=== PATIENT | male | born 1965 | race Caucasian/White ===

== ENCOUNTER 2021-10-26 04:10 | Inpatient (IN) ==
[2021-10-26] MEDS ORDERED: ONDANSETRON INJ 2 MG/ML 2 ML VIAL IV STA (04:27)
[2021-10-26] MEDS ORDERED: SODIUM CHLORIDE 0.9% 1000ML 1,000 ML IV SCH (04:30)
[2021-10-26 06:05] LABS: Albumin Globulin Ratio 1.3 (0.9-2); Albumin Level 3.8 gm/dl (3.4-5.0); Bilirubin,Total 0.7 mg/dl (0.2-1.0); Calcium 8.3 mg/dl (8.5-10.1); Creatinine Clr Calc Pharmacy 37.5 ml/min; Est GFR (African American) 39.7 ml/min; Est GFR (Non-African American) 34.3 ml/min; Potassium 4.1 mmol/L (3.5-5.1); Total Protein 6.8 gm/dl (6.0-8.3)
[2021-10-26 06:23] LABS: Basophils # (auto) 0.05 K/uL (0-0.2); Basophils % (auto) 0.8 %; Echinocytes 2+; Hemoglobin 15.6 g/dl (14.0-18.0); Immature Granulocytes # (auto) 0.05 K/uL (0.00-0.02); Immature Granulocytes % (auto) 0.8 %; Lymphocytes # (auto) 1.33 K/uL (1.2-3.4); Lymphocytes % (auto) 20.6 %; Mean Corpuscular Hemoglobin 29.2 pg (25.0-34.0); Mean Corpuscular Hgb Conc 33.9 g/dL (32.0-36.0); Mean Corpuscular Volume 86.1 fL (80.0-100.0); Mean Platelet Volume 9.9 fL (9.4-12.4); Monocytes # (auto) 0.57 K/uL (0.24-0.82); Monocytes % (auto) 8.8 %; Neutrophils # (auto) 4.46 K/uL (1.4-6.5); Platelet Count 295 K/uL (130-400); RDW Coefficient of Variation 13.6 % (11.5-14.5); RDW Standard Deviation 42.9 fL (36.4-46.3); Red Blood Count 5.34 M/uL (4.63-6.08); White Blood Count 6.46 K/ul (4.8-10.8)
[2021-10-26] MEDS ORDERED: SODIUM CHLORIDE 0.9% 1000ML 1,000 ML IV ONE (07:08)
[2021-10-26 07:33] LABS: Appearance Urine Cloudy (Clear); Bilirubin Urine Negative (Negative); Blood Urine Trace (Negative); Color Urine Dark Yellow; Glucose Urine UA Negative (Negative); Ketones Urine Negative (Negative); Leukocyte Esterase Urine Negative (Negative); Nitrite Urine Negative (Negative); Protein Urine 1+ (Negative); Specific Gravity Urine 1.021 (1.000-1.030); Urobilinogen Urine Negative (Negative)
--- NOTE | 2021-10-26 07:52 | Emergency Department Note ---
History of Present Illness General Chief complaint: Flu Like Symptoms Stated complaint: CHILLS, FEVER, DIARRHEA Time Seen by Provider: 10/26/21 04:17 History of Present Illness This 56-year-old male patient presents to the emergency department today for evaluation of "I am sick". Patient notes he has had diarrhea, nausea, and vomiting for 2 days. He notes his stool has been liquid. He states even certain movements make him move his bowels. He states he took Tylenol and Pepto-Bismol without relief of his symptoms. He does report subjective fevers. He recently traveled here from [facility] to help a friend who is having surgery. He denies any cough, congestion, runny nose, sore throat. He does n ote he has had COVID-19 and Monkey Pox vaccines. He denies any specific abdominal pain. He states his generalized discomfort is a 5/10. Past Med/Surg History Medical History No pertinent past medical history Social History Smoking Status: Current every day smoker Preferred Language: Mongolian Feels Safe at Home: Yes Review of Systems A total of 10 systems reviewed and were otherwise negative Physical Exam Vital Signs Vital Signs - 24 hr 10/26/21 04:15 10/26/21 05:49 10/26/21 07:00 Temperature 37.5 C Temperature Source Oral Pulse Rate 140 H Pulse Rate [Finger] 115 H 80 Respiratory Rate 20 18 18 Respiratory Effort / Characteristics Non-Labored Spontaneous Respiratory Depth Normal Normal Respiratory Pattern Regular Blood Pressure 140/75 Blood Pressure [Left Arm] 102/60 109/65 Blood Pressure Mean 96 Blood Pressure Mean [Left Arm] 74 79 Blood Pressure Position [Left Arm] Lying Pulse Oximetry 94 96 95 Oxygen Delivery Method Room Air Room Air Room Air Sepsis Recent Fever Within 48 Hours Yes Sepsis New/Unexplained Change in Mental Status N/A Sepsis Action Taken by Nursing No Action Required VITALS: Vitals are noted on the nurse's note and reviewed by myself. Patient is tachycardic on initial examination. GENERAL: This is a 56-year-old white male, in no acute distress, nondiaphoretic, well-developed well-nourished. SKIN: The skin was without rashes, erythema, edema, or bruising. There is no tenting of the skin. Capillary refill less than 2 seconds. HEAD: Normocephalic atraumatic. EYES: Conjunctivae without injection, sclerae without icterus. MOUTH: Mucous membranes moist. Tonsils are not enlarged. Pharynx without erythema or exudate. Uvula midline. Airway patent. Tongue does not deviate. NECK: Supple without nuchal rigidity. No lymphadenopathy. No JVD. HEART: Regular rate and rhythm without murmurs gallops or rubs. LUNGS: Clear to auscultation bilaterally without wheezes, rales or rhonchi. No retractions or accessory muscle use. ABDOMEN: Positive bowel sounds x 4. Soft, nontender, without masses or organomegaly. Valle sign negative. No guarding or rebound tenderness. MUSCULOSKELETAL: No muscle atrophy, erythema, or edema noted. Full range of motion without joint tenderness in all extremities. No tenderness to palpation. Normal gait. Strength 5/5 throughout. NEURO: Patient was alert and oriented to person place and time. No focal neurological deficits. Course Course The patient was seen and evaluated as above. An order was placed for continuous cardiac monitoring. The monitor shows a normal sinus rhythm at a rate of 80 bpm. IV access obtained, labs drawn. Patient medicated with IV fluids and Zofran. Labs reviewed by myself. Urinalysis and stool culture collected and sent to the lab for testing. I discussed the findings with the patient at bedside. I discussed the case with my attending. I discussed the case with the community services manager. I discussed the case with the [facility] Hospitalist. They did agree to see and evaluate the patient for admission. Administered Medications Discontinued Medications Sodium Chloride (Nss 1000ml) 1,000 mls @ 999 mls/hr IV .Q1H1M HOLLY Stop: 10/26/21 05:30 Last Infusion: 10/26/21 05:31 Dose: 0 mls/hr Documented By: Admin: 10/26/21 04:44 Dose: 999 mls/hr Documented By: Sodium Chloride (Nss 1000ml) 1,000 mls @ 999 mls/hr IV .Q1H1M ONE Stop: 10/26/21 08:08 Last Infusion: 10/26/21 08:23 Dose: 0 mls/hr Documented By: Admin: 10/26/21 07:20 Dose: 999 mls/hr Documented By: TOMMIE Ondansetron HCl (Ondansetron Inj 2 Mg/Ml 2 Ml Vial) 4 mg IV NOW STA Stop: 10/26/21 04:28 Last Admin: 10/26/21 04:45 Dose: Not Given Documented By: Medical Decision Making Differential Diagnosis Appendicitis, infections, diverticulitis, UTI, obstruction, mesenteric ischemia, aortic pathology, inflammatory bowel disease, renal colic, PUD, pancreatitis, biliary pathology, hernia, volvulus, diarrhea, as well as other pathologies. Medical Records Attestation: I reviewed the patient's medical records. Home Medications Current Medication List: was personally reviewed by me Laboratory Data Attestation: I reviewed the patient's lab results. No leukocytosis, anemia, thrombocytopenia. Creatinine elevated at 2.07. Sodium 129. Potassium 4.1. Lipase 5. COVID-19 testing negative. Urinalysis with trace blood, 1+ protein. Result diagrams: 10/26/21 04:38 10/26/21 04:38 Lab Results 10/26/21 10/26/21 10/26/21 Range/Units 04:35 04:38 04:38 WBC 6.46 (4.8-10.8) K/ul RBC 5.34 (4.63-6.08) M/uL Hgb 15.6 (14.0-18.0) g/dl Hct 46.0 (40.1-51.0) % MCV 86.1 (80.0-100.0) fL MCH 29.2 (25.0-34.0) pg MCHC 33.9 (32.0-36.0) g/dL RDW Std Deviation 42.9 (36.4-46.3) fL RDW Coeff of Mine 13.6 (11.5-14.5) % Plt Count 295 (130-400) K/uL MPV 9.9 (9.4-12.4) fL Immature Gran % (Auto) 0.8 % Neut % (Auto) 69.0 % Lymph % (Auto) 20.6 % [place] % (Auto) 8.8 % Eos % (Auto) 0.0 % Baso % (Auto) 0.8 % Neut # (Auto) 4.46 (1.4-6.5) K/uL Lymph # (Auto) 1.33 (1.2-3.4) K/uL [place] # (Auto) 0.57 (0.24-0.82) K/uL Eos # (Auto) 0.00 (0-0.50) K/uL Baso # (Auto) 0.05 (0-0.2) K/uL Immature Gran # (Auto) 0.05 H (0.00-0.02) K/uL Echinocytes 2+ Sodium 129 L (136-145) mmol/L Potassium 4.1 (3.5-5.1) mmol/L Chloride 93 L (98-107) mmol/L Carbon Dioxide 20 L (21-32) mmol/L Anion Gap 16 H (3-11) BUN 31 H (6-23) mg/dl Creatinine 2.07 H (0.6-1.4) mg/dl Est Cr Clr Drug Dosing 37.5 ml/min Est GFR ( Amer) 39.7 ml/min Est GFR (Non-Af Amer) 34.3 ml/min BUN/Creatinine Ratio 15.0 (10-20) Glucose 146 H (70-99(Fasting)) mg/dl Calcium 8.3 L (8.5-10.1) mg/dl Total Bilirubin 0.7 (0.2-1.0) mg/dl AST 15 (13-39) U/L ALT 17 (7-52) U/L Alkaline Phosphatase 51 (34-104) U/L Total Protein 6.8 (6.0-8.3) gm/dl Albumin 3.8 (3.4-5.0) gm/dl Globulin 3.0 (2.5-4.0) gm/dl Albumin/Globulin Ratio 1.3 (0.9-2) Lipase 5 L (11-82) U/L Urine Color Urine Appearance (Clear) Urine pH (4.5-7.5) Ur Specific [place] (1.000-1.030) Urine Protein (Negative) Urine Glucose (UA) (Negative) Urine Ketones (Negative) Urine Blood (Negative) Urine Nitrite (Negative) Urine Bilirubin (Negative) Urine Urobilinogen (Negative) Ur Leukocyte Esterase (Negative) Urine WBC (Auto) (0-5) /hpf Urine RBC (Auto) (0-4) /hpf U Hyaline Cast (Auto) (0-5) /lpf U Epithel Cells (Auto) (0-5) /lpf Urine Bacteria (Auto) (Negative) Ur Renal Epithelial Cell Urine Mucus (None Prsent) SARS-CoV-2 (PCR) NEGATIVE (Negative) 10/26/21 Range/Units 07:00 WBC (4.8-10.8) K/ul RBC (4.63-6.08) M/uL Hgb (14.0-18.0) g/dl Hct (40.1-51.0) % MCV (80.0-100.0) fL MCH (25.0-34.0) pg MCHC (32.0-36.0) g/dL RDW Std Deviation (36.4-46.3) fL RDW Coeff of Mine (11.5-14.5) % Plt Count (130-400) K/uL MPV (9.4-12.4) fL Immature Gran % (Auto) % Neut % (Auto) % Lymph % (Auto) % [place] % (Auto) % Eos % (Auto) % Baso % (Auto) % Neut # (Auto) (1.4-6.5) K/uL Lymph # (Auto) (1.2-3.4) K/uL [place] # (Auto) (0.24-0.82) K/uL Eos # (Auto) (0-0.50) K/uL Baso # (Auto) (0-0.2) K/uL Immature Gran # (Auto) (0.00-0.02) K/uL Echinocytes Sodium (136-145) mmol/L Potassium (3.5-5.1) mmol/L Chloride (98-107) mmol/L Carbon Dioxide (21-32) mmol/L Anion Gap (3-11) BUN (6-23) mg/dl Creatinine (0.6-1.4) mg/dl Est Cr Clr Drug Dosing ml/min Est GFR ( Amer) ml/min Est GFR (Non-Af Amer) ml/min BUN/Creatinine Ratio (10-20) Glucose (70-99(Fasting)) mg/dl Calcium (8.5-10.1) mg/dl Total Bilirubin (0.2-1.0) mg/dl AST (13-39) U/L ALT (7-52) U/L Alkaline Phosphatase (34-104) U/L Total Protein (6.0-8.3) gm/dl Albumin (3.4-5.0) gm/dl Globulin (2.5-4.0) gm/dl Albumin/Globulin Ratio (0.9-2) Lipase (11-82) U/L Urine Color Dark Yellow Urine Appearance Cloudy A (Clear) Urine pH 5.0 (4.5-7.5) Ur Specific [place] 1.021 (1.000-1.030) Urine Protein 1+ H (Negative) Urine Glucose (UA) Negative (Negative) Urine Ketones Negative (Negative) Urine Blood Trace H (Negative) Urine Nitrite Negative (Negative) Urine Bilirubin Negative (Negative) Urine Urobilinogen Negative (Negative) Ur Leukocyte Esterase Negative (Negative) Urine WBC (Auto) 5-10 H (0-5) /hpf Urine RBC (Auto) 5-10 H (0-4) /hpf U Hyaline Cast (Auto) 5-10 H (0-5) /lpf U Epithel Cells (Auto) 0-5 (0-5) /lpf Urine Bacteria (Auto) 1+ H (Negative) Ur Renal Epithelial Cell Not Reportable Urine Mucus Present A (None Prsent) SARS-CoV-2 (PCR) (Negative) Blood Pressure Blood Pressure Findings: Normal blood pressure MDM Narrative This 56-year-old male patient presents to the emergency department today for evaluation of 2-day history of diarrhea. Patient reports subjective fevers. No associated pain. Work-up here in the ED concerning for RAFAEL with creatinine of 2.07. He does have a hyponatremia with a sodium of 129. Calcium low at 8.3. Urinalysis concerning for "protein, trace blood, 1+ bacteria. Stool PCR is pending. Given the RAFAEL, I do recommend inpatient management. Patient was hydrated with 2 L IV fluids and medicated with Zofran. Patient will be admitted to the hospitalist service. Please see hospitalist dictation regarding ongoing management and care of this patient. The chart was completed utilizing [employer] voice recognition software. Grammatical errors, random word insertions, pronoun errors, and incomplete sentences are an occasional consequence of this system due to software limitations, ambient noise, and hardware issues. Any formal questions or concerns about the content, text, or information contained within the body of this dictation should be directly addressed to the provider for clarification. Impression & Plan Diarrhea, RAFAEL (acute kidney injury), Acute dehydration, Nausea Discharge Plan Visit Data Chief Complaint: Flu Like Symptoms Stated Complaint: CHILLS, FEVER, DIARRHEA ED Provider: Pratik Vieyra ED Midlevel Provider: Xena Sorto Discharge Problem: Diarrhea, RAFAEL (acute kidney injury), Acute dehydration, Nausea Patient Disposition: Admitted As Inpatient Forms Stand Alone Forms: [facility] Referrals Referrals: PCP,NO [Primary Care Provider] -
[2021-10-26 08:03] LABS: Bacteria Urine Automated 1+ (Negative); Epithelial Cell Urine Auto 0-5 /lpf (0-5)
[2021-10-26 08:07] LABS: Mucus Urine Present (None Prsent)
--- NOTE | 2021-10-26 08:41 | History & Physical Report ---
Date of Service October 26, 2021 Assessment & Plan (1) Diarrhea: Plan: Acute diarrhea in a 56 yo homosexual male on PREP. Patient tested positive for EAEC and Shigella in his stool. EAEC is noted to be found mainly in immunocompromised people in developed countries. Patient reports he has not drank any dirty water. He reports no travel or recent sick contact. He has had HIV testing which was negative just 8 days ago. The majority of cases of shigella are self limiting, however treatment is encouraged if there is a public health concern or if patient is unstable or if patient is immunocompromised. Given the EAEC, it does bring into question if he does have HIV. will repeat HIV testing, however, this is a sent out test. Will likely get results later in the week. Decision to start antibiotics in this case would be based on his clinical presentation and if he improves. (2) RAFAEL (acute kidney injury): Plan: Will also consider HUS as a differential, but this appears likely to be all prerenal. Placed on IVF. creatinine is improving with IVF which is reassuring (3) At risk for HIV due to homosexual contact: Plan: Though in a stable relationship, with recent HIV testing that was negative and on PREP, THOUGH UNLIKELY to be positive, will need to rule out HIV however will test again due to his stool culture findings. DVT: heparin History of Present Illness Chief Complaint: diarrhea Primary Care Provider: NO PCP 56 yo male with PMH dyslipidemia, on PREP, presents to the hospital with 36 hour history of diarrhea. Patient reports on Monday, in the evening, he developed fever and chills. This was then accompanied by watery diarrhea. Patient denies any blood or change of color. Patient reports he has become weaker, and his diarrhea has not subsided, which prompted him to come to the hospital. Patient reports no recent travel. Patient states he is in a stable relationship. He is on PREP and has a recent HIV test which was negative. Patient is visiting from [facility]. He has had the monkey pox vaccine, and COVID 19 vaccine Past Med/Surg History Medical History No pertinent past medical history Social History (Updated 10/26/21 @ 11:12 by Leroy Ayers) Smoking Status: Current every day smoker Do You Dip or Chew Tobacco: No; Hx Alcohol Use: No Hx Substance Use: No Preferred Language: [place] [employer] Manager Required: No Beliefs That Will Affect Care: None Current Living Situation: Family Other Information That Helps Us Care for You: No Feels Safe at Home: Yes Safety Concerns: Feels Safe At This Time Do you think of yourself as: lesbian/rosario/homosexual Sexual Orientation Comment: on prep Sexual Activity: has been sexually active within the last 12 months Review of Systems Constitutional: + fever and + sweats; no body aches Eyes: no blind spots Ear, Nose, Mouth, Throat: no ear pain and no ear trauma Respiratory: no cough and no dyspnea Cardiovascular: no chest pain and no chest pain with activity Gastrointestinal: no abdominal pain and no bloating Genitourinary: no dysuria Musculoskeletal: no back pain Integumentary: no acne and no rash Neurologic: no gait abnormality and no falls Psychiatric: no behavioral changes Endocrine: + fatigue Hematologic / Lymphatic: no easy bleeding Allergy / Immunological: no GI upset with certain foods Physical Exam Constitutional: WD/WN, vitals as above Eyes: PERRL, conjunctivae normal, anicteric sclerae ENMT: external ear and nose normal, oropharynx normal Neck: trachea midline, no thyromegaly Respiratory: normal respiratory effort, lungs clear to auscultation Cardiovascular: RRR, no murmur, no edema Gastrointestinal (Abdomen): normal bowel sounds, soft, nontender, no hepatosplenomegaly Musculoskeletal: no cyanosis or clubbing, extremities motor strength 5/5 Skin: no rashes, warm and dry Neurologic: PERRL, EOMI, accommodation nl, no face palsy, no dysarthria Psychiatric: A+Ox3, euthymic affect Lymphatic: no cervical or axillary lymphadenopathy Results & Data Results & Data ([facility]) Vital Signs (Past 12 Hours) Vital Signs Temp Pulse Pulse Resp BP BP Pulse Ox 10/26/21 07:00 80 18 109/65 95 10/26/21 05:49 115 H 18 102/60 96 10/26/21 04:15 37.5 C 140 H 20 140/75 94 O2 Del Method 10/26/21 07:00 Room Air 10/26/21 05:49 Room Air 10/26/21 04:15 Room Air PG Care Time/CCT Total # of Minutes Spent Total Time Spent with Patient: Total time spent is greater than 50% in coordination of care (as documented) at patient's floor/unit and/or counseling patient: Coding Level of Care Code 17974 Initial Inpt Care Lvl 3 Diagnoses Diarrhea R19.7 RAFAEL (acute kidney injury) N17.9 At risk for HIV due to homosexual contact Z91.89
[2021-10-26 08:50] LABS: Adenovirus F 40/41 PCR Not Detected (NotDetected); Astrovirus PCR Not Detected (NotDetected); Clostridium diff Toxin A/B PCR Not Detected (NotDetected); Cryptosporidium PCR Not Detected (NotDetected); Cyclospora cayetanensis PCR Not Detected (NotDetected); Entamoeba histolytica PCR Not Detected (NotDetected); Enteroaggregative E.coli(EAEC) DETECTED (NotDetected); Enteropathogenic E.coli (EPEC) Not Detected (NotDetected); Enterotoxigenic E.coli (ETEC) Not Detected (NotDetected); Giardia lamblia PCR Not Detected (NotDetected); Norovirus GI/GII PCR Not Detected (NotDetected); Plesiomonas shigelloides PCR Not Detected (NotDetected); Rotavirus A PCR Not Detected (NotDetected); Salmonella PCR Not Detected (NotDetected); Sapovirus PCR Not Detected (NotDetected); Shiga-like Toxin E.coli (STEC) Not Detected (NotDetected); Shigella/Enteroinvasive E.coli DETECTED (NotDetected); Vibrio cholerae PCR Not Detected (NotDetected); Vibrio species PCR Not Detected (NotDetected); Yersinia enterocolitica PCR Not Detected (NotDetected)
[2021-10-26 08:56] LABS: Campylobacter PCR Not Detected (NotDetected)
[2021-10-26 10:12] LABS: Base Excess VBG -0.5 mEq/L; HCO3 VBG 24 mmol/L; Oxygen Saturation VBG < 60.0 %; PCO2 VBG 39 mmHg (38-50); PO2 VBG 17 mmHg
[2021-10-26 10:31] LABS: BUN Creatinine Ratio 19.7 (10-20); Calcium 7.8 mg/dl (8.5-10.1); Creatinine Clr Calc Pharmacy 52.8 ml/min; Est GFR (African American) 60.1 ml/min; Est GFR (Non-African American) 51.8 ml/min; Potassium 3.6 mmol/L (3.5-5.1)
[2021-10-26] MEDS: LACTATED RINGER'S 1,000 ML IV SCH ×2 (11:57→21:13)
[2021-10-26] MEDS: EMTRICITABINE/TENOFOVIR TAB PO SCH (12:47)
[2021-10-26] MEDS: HEPARIN SOD 5,000 UNIT/0.5 ML VIAL SQ SCH ×2 (14:39→21:14)
[2021-10-26 15:26] LABS: BUN Creatinine Ratio 22.7 (10-20); Calcium 7.9 mg/dl (8.5-10.1); Creatinine Clr Calc Pharmacy 70.6 ml/min; Est GFR (African American) 85.3 ml/min; Est GFR (Non-African American) 73.6 ml/min; Potassium 3.2 mmol/L (3.5-5.1)
[2021-10-26] MEDS ORDERED: ALLERGY Noted to ORDERED Medication SCH (16:00)
[2021-10-26] MEDS ORDERED: POTASSIUM CHLORIDE CRTAB 20 MEQ TABCR PO STA (16:50)
[2021-10-26] MEDS: PRAVASTATIN SOD 20 MG TAB PO SCH (17:41)
[2021-10-26] MEDS: POTASSIUM CHLORIDE CRTAB 20 MEQ TABCR PO SCH (21:18)
[2021-10-27] MEDS: LACTATED RINGER'S 1,000 ML IV SCH ×3 (00:10→11:59)
[2021-10-27] MEDS: HEPARIN SOD 5,000 UNIT/0.5 ML VIAL SQ SCH ×3 (06:06→22:00)
[2021-10-27] MEDS: POTASSIUM CHLORIDE CRTAB 20 MEQ TABCR PO SCH ×3 (08:17→22:00)
[2021-10-27] MEDS: EMTRICITABINE/TENOFOVIR TAB PO SCH (08:17)
[2021-10-27 08:22] LABS: Appearance Urine Clear (Clear); Bacteria Urine Automated Negative (Negative); Bilirubin Urine Negative (Negative); Blood Urine 2+ (Negative); Color Urine Yellow; Glucose Urine UA Negative (Negative); Ketones Urine 2+ (Negative); Leukocyte Esterase Urine Negative (Negative); Nitrite Urine Negative (Negative); Protein Urine 1+ (Negative); Specific Gravity Urine 1.016 (1.000-1.030); Urobilinogen Urine Negative (Negative); pH Urine 5.5 (4.5-7.5)
[2021-10-27 11:37] LABS: Albumin Globulin Ratio 1.2 (0.9-2); Albumin Level 2.9 gm/dl (3.4-5.0); BUN Creatinine Ratio 23.3 (10-20); Bilirubin,Total 0.4 mg/dl (0.2-1.0); Creatinine Clr Calc Pharmacy 106.4 ml/min; Est GFR (African American) 118.5 ml/min; Est GFR (Non-African American) 102.2 ml/min; Globulin 2.4 gm/dl (2.5-4.0); Potassium 3.4 mmol/L (3.5-5.1); Total Protein 5.3 gm/dl (6.0-8.3)
--- NOTE | 2021-10-27 11:57 | Hospitalist Progress Note ---
Date of Service October 27, 2021 Assessment & Plan (1) Diarrhea: Plan: Acute diarrhea in a 56 yo homosexual male on PREP. 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 EAEC is noted to be found mainly in immunocompromised people in developed countries. Patient reports he has not drank any dirty water. He reports no travel or recent sick contact. He has had HIV testing which was negative just 8 days ago. The majority of cases of shigella are self limiting, however treatment is encouraged if there is a public health concern or if patient is unstable or if patient is immunocompromised. Given the EAEC, it does bring into question if he does have in fact HIV. will repeat HIV testing, however, this is a sent out test. Will likely get results later in the week. However, on 10/27 patient continues to improve clinically despite not being on antibiotics. Patient is not having increased WBC, subjective fevers, he only had 4 small liquid bowel movements, and he has an improved appetite. Will stop IVF on 10/27. If his clinical presentation worsens, may consider starting antibiotics. But thses infections usually are self limiting. And given improvement of his symptoms, will continue to hold. May consider discharge tomorrow. Advanced diet (2) RAFAEL (acute kidney injury): Plan: Likely secondary to diarrhea. Pre-renal RAFAEL Will stop IVF on 10/27 creatinine normalized on 10/27 will assess how patient can maintain his renal function without parenteral fluids. (3) At risk for HIV due to homosexual contact: Plan: Though in a stable relationship, with recent HIV testing that was negative and on PREP, THOUGH UNLIKELY to be positive, will need to rule out HIV however will test again due to his stool culture findings. DVT: lovenox (4) Anemia: Plan: Dropped to 11.9 Patient was likely hemoconcentrated and was treated aggressively with fluid. will reassess tomorrow. Admission and Anticipated Discharge Date Admission Date: October 26, 2021 Subjective 56 yo male reports doing well. He reports a decrease in stools, increase in appetite, no blood, nor does he compalin of any subjective fevers. Patient states he feels like a completely new man. Review of Systems Review of Systems: All systems reviewed & are unremarkable except as noted in HPI & below Physical Exam Constitutional: WD/WN, vitals as above Eyes: PERRL, conjunctivae normal, anicteric sclerae ENMT: external ear and nose normal, oropharynx normal Neck: trachea midline, no thyromegaly Respiratory: normal respiratory effort, lungs clear to auscultation Cardiovascular: RRR, no murmur, no edema Gastrointestinal (Abdomen): normal bowel sounds, soft, nontender, no hepatosplenomegaly Musculoskeletal: no cyanosis or clubbing, extremities motor strength 5/5 Skin: no rashes, warm and dry Neurologic: PERRL, EOMI, accommodation nl, no face palsy, no dysarthria Psychiatric: A+Ox3, euthymic affect Lymphatic: no cervical or axillary lymphadenopathy Results & Data Results & Data ([facility]) Vital Signs (Past 12 Hours) Vital Signs Temp Pulse Resp BP Pulse Ox O2 Del Method 10/27/21 07:44 36.5 C 83 16 106/70 96 Room Air 10/27/21 07:35 Room Air PG Care Time/CCT Total # of Minutes Spent Total Time Spent with Patient: Total time spent is greater than 50% in coordination of care (as documented) at patient's floor/unit and/or counseling patient: Coding Level of Care Code 08112 Subseq Hosp Care Lvl 3 Diagnoses Diarrhea R19.7 RAFAEL (acute kidney injury) N17.9 At risk for HIV due to homosexual contact Z91.89 Anemia D64.9 Time Spent (min) 35
[2021-10-27 12:01] LABS: Hematocrit (blood only) 34.9 % (40.1-51.0); Hemoglobin 11.9 g/dl (14.0-18.0); Mean Corpuscular Hgb Conc 34.1 g/dL (32.0-36.0); Mean Corpuscular Volume 85.1 fL (80.0-100.0); Mean Platelet Volume 9.4 fL (9.4-12.4); Platelet Count 236 K/uL (130-400); RDW Coefficient of Variation 13.4 % (11.5-14.5); White Blood Count 9.81 K/ul (4.8-10.8)
[2021-10-27 12:05] LABS: Basophils # (auto) 0.05 K/uL (0-0.2); Basophils % (auto) 0.5 %; Echinocytes 1+; Eosinophils # (auto) 0.02 K/uL (0-0.50); Eosinophils % (auto) 0.2 %; Immature Granulocytes # (auto) 0.08 K/uL (0.00-0.02); Immature Granulocytes % (auto) 0.8 %; Lymphocytes # (auto) 1.47 K/uL (1.2-3.4); Monocytes # (auto) 1.03 K/uL (0.24-0.82); Monocytes % (auto) 10.5 %; Neutrophils # (auto) 7.16 K/uL (1.4-6.5)
[2021-10-27] MEDS ORDERED: ONDANSETRON INJ 2 MG/ML 2 ML VIAL IV STA (14:58)
[2021-10-27] MEDS ORDERED: cefTRIAXone SODIUM 2,000 MG in DEXTROSE 5% 50 ML IV SCH (15:30)
[2021-10-27] MEDS: PRAVASTATIN SOD 20 MG TAB PO SCH (16:30)
[2021-10-28] MEDS: HEPARIN SOD 5,000 UNIT/0.5 ML VIAL SQ SCH (06:09)
[2021-10-28 07:35] LABS: Hematocrit (blood only) 37.8 % (40.1-51.0); Hemoglobin 12.8 g/dl (14.0-18.0); Mean Corpuscular Hemoglobin 28.4 pg (25.0-34.0); Mean Corpuscular Hgb Conc 33.9 g/dL (32.0-36.0); Mean Platelet Volume 9.4 fL (9.4-12.4); Platelet Count 263 K/uL (130-400); RDW Coefficient of Variation 13.3 % (11.5-14.5); RDW Standard Deviation 41.2 fL (36.4-46.3); White Blood Count 10.02 K/ul (4.8-10.8)
[2021-10-28 08:03] LABS: BUN Creatinine Ratio 17.3 (10-20); Calcium 8.3 mg/dl (8.5-10.1); Creatinine Clr Calc Pharmacy 95.9 ml/min; Est GFR (African American) 113.5 ml/min; Potassium 3.8 mmol/L (3.5-5.1)
[2021-10-28] MEDS: EMTRICITABINE/TENOFOVIR TAB PO SCH (09:04)
[2021-10-28] MEDS: POTASSIUM CHLORIDE CRTAB 20 MEQ TABCR PO SCH (09:04)
--- NOTE | 2021-10-28 11:12 | Discharge Summary ---
Date of Service October 28, 2021 Admission HPI Per Admitting Provider 56 yo male with PMH dyslipidemia, on PREP, presents to the hospital with 36 hour history of diarrhea. Patient reports on Monday, in the evening, he developed fever and chills. This was then accompanied by watery diarrhea. Patient denies any blood or change of color. Patient reports he has become weaker, and his diarrhea has not subsided, which prompted him to come to the hospital. Patient reports no recent travel. Patient states he is in a stable relationship. He is on PREP and has a recent HIV test which was negative. Patient is visiting from [facility]. He has had the monkey pox vaccine, and COVID 19 vaccine Admission Exam Per Admitting Provider Constitutional: WD/WN, vitals as above Eyes: PERRL, conjunctivae normal, anicteric sclerae ENMT: external ear and nose normal, oropharynx normal Neck: trachea midline, no thyromegaly Respiratory: normal respiratory effort, lungs clear to auscultation Cardiovascular: RRR, no murmur, no edema Gastrointestinal (Abdomen): normal bowel sounds, soft, nontender, no hepatosplenomegaly Musculoskeletal: no cyanosis or clubbing, extremities motor strength 5/5 Skin: no rashes, warm and dry Neurologic: PERRL, EOMI, accommodation nl, no face palsy, no dysarthria Psychiatric: A+Ox3, euthymic affect Lymphatic: no cervical or axillary lymphadenopathy Principal Diagnosis shigella and EAEC positive diarrhea with RAFAEL and dehydration Discharge Exam Constitutional NAD, vitals WNL Respiratory CTA bilaterally. Non labored breathing. No rhonchi, crackles, or wheezing. Cardiovascular RRR. No murmur noted. Gastrointestinal (Abdomen) Nontender, +BS. No masses noted. Discharge Data Allergies Allergy/AdvReac Type Severity Reaction Status Date / Time No Known Allergies Allergy Unverified 10/26/21 15:21 Consultations 10/26/21 08:29 ED Decision to Admit Stat Hospital Course (1) Diarrhea: Acute diarrhea with hematochezia - resolved today, pt asymptomatic - given 1 dose of ceftriaxone - d/c on cefdinir 300 mg BID x5 days - f/u with PCP RAFAEL - most likely pre renal d/t dehydration - admission Cr 1.47 - Cr upon d/c 0.81 - encouraged pt to continue to stay hydrated At risk for HIV - repeat test negative Anemia - Hgb upon admission 15.6, down to 11.9 most likely dilutional - minimal blood loss d/t hematochezia - Hgb stable upon d/c 12.8 (2) RAFAEL (acute kidney injury): (3) Acute dehydration: (4) At risk for HIV due to homosexual contact: (5) Anemia: Plan DVT ppx: lovenox during hospitalization Fluids/electrolytes: given LR 150 mL/hr x2 days Dispo: home Total Time Total Time Spent Total Time Spent (In Minutes): As per attending attestation Discharge Plan Discharge Items Patient Disposition: Home - Self-Care Reason For Visit: RAFAEL Discharge Diagnosis: RAFAEL d/t dehydration, shigella and EAEC pos diarrhea Activity: Resume your previous activity Non-emergency contact: Primary Care Provider Call non-emergency contact if: you have any medication questions and your symptoms worsen Follow-up/Referrals: PCP,NO [Physician] - (Patient is from [facility]. Spoke to him on the telephone and he has agreed to f/u with his PCP within 7-10 days as a hospital follow up. His PCP is Jessica Ragsdale MD.) Diet: Regular Addtl Attending Provider Instructions: You were admitted to the hospital for diarrhea, dehydration, and kidney injury. You were treated with fluids and the antibiotic ceftriaxone while in the hospital. Upon discharge, you will continue a different antibiotic called cefdinir. A discharge summary will be sent to your primary care physician to ensure continuity of care. Please bring this discharge summary with you to your next office appointment so that your provider can review it at that time. Medications: Your medication list has been reviewed and reconciled upon discharge to ensure accuracy and continuity of care. An updated list of all your medications is included with your hospital discharge paperwork. Please review this list closely and make note of any changes to your medications. - Continue your antibiotic cefdinir for 5 days after discharge. Make sure to take all your antibiotic even though you are feeling better. This medication was sent to the [facility] on [facility]. - Continue to stay hydrated. Follow up appointments: - Make a follow up appointment with your PCP within the next week. It is very important that you follow up with them shortly after discharge from the hospital. CONTACT YOUR PRIMARY CARE PROVIDER if you experience any of the following: - Difficulty following your treatment plan - Difficulty taking any of your medications CALL 911 OR GO TO THE EMERGENCY DEPARTMENT if you experience any of the following: - Recurrent diarrhea or blood in stool - Sudden, severe abdominal pain or nausea/vomiting - Severe chest pain or chest pain that radiates to your jaw or arm - Sudden, severe shortness of breath or difficulty breathing Pending Studies at Discharge: No Stand-Alone Forms: My [facility] [employer], Smoking Cessation Medications and DC Order Prescriptions: New cefdinir 300 mg capsule 300 mg PO BID 5 Days Qty: 10 0RF Discharge Orders: Discharge Order (Routine); Ordered 10/28/21 Ordered By: Carol Adame Admission Data Admit Date/Time: 10/26/21 08:32 Attending Provider: Josiah Varela Admit Provider: Leroy Ayers Primary Care Provider: Jessica Ragsdale Other Providers: Leroy Ayers Other Interventions: Discharge Summary Assessment (RN) Last Done: 10/28/21 11:48 Supervising Physician Co-Signing Physician Notes Patient seen and examined, chart reviewed, case discussed with Carol Adame, DO and I agree with the assessment and plan as above except as other harmon noted above. At bedside patient feels 'great', is eager to go home, and notes he is completely back to baseline. No CP/CP/SOB. No abdominal pain, no diarrhea today. No questions/concerns. General: A&Ox3. NAD. Cooperative. HEENT: Atraumatic, normocephalic. Pulm: CTAB A&P. -wheezes, -rales, -rhonchi. Symmetrical chest rise. No increase work of breathing. No respiratory distress. Cardiac: RRR, -mrg. Radial pulses intact and symmetrical. Abdominal: Nontender, nondistended, soft. BS present. All labs and images reviewed 56yo M who presents with EAEC and Shigella positive stool and diarrhea with hematochezia. HIV testing outpatient and repeat negative. Symptoms resolved on 10/28. Improved while inpatient on rocephin, complete abx course with cefdinir x5 additional days. RAFAEL resolved,prerenal in the setting of diarrhea. Resident Activity Tracking Resident Involvement: Resident Care Provided Care Provided: Adult Hospital Medicine
== END 2021-10-28 12:41 | disposition home or self-care (01) | DRG 372 ==
LOC: ED 04:10 → 3E 08:32 → SUATTDRO 08:32 → 3E 10:20